=== PATIENT | female | born 1965 | race Two or more races ===

== ENCOUNTER 2020-01-25 16:17 | Emergency (ER) | payer MEDICARE, OTHER ==
[~2020-01-25] VITALS: Ht 154.9 cm; Wt 68.0 kg
--- NOTE | 2020-01-25 16:17 | NUR ---
PT [address] [address] C/O DRUG OVERDOSE PER EMS PT OD ON HEROIN. PT IS AAOX2, NOT IN RESPIRATORY DISTRESS, HOOKED TO COMMUNICATIONS PROFESSIONAL, KEPT RESTED AND COMFORTABLE. WILL CONTINUE TO MONITOR.
--- NOTE | 2020-01-25 18:26 | NUR ---
Patient given written and verbal discharge instructions. Patient verbalizes understanding of instructions. Patient is ambulatory with steady gait. Refuses offer of correction placement. Patient given list of available shelters in surrounding area.
[2020-01-25 18:27] VITALS: BP 120/71
== END 2020-01-25 18:29 | disposition home or self-care (01) ==
LOC: ER 16:27
DX: T40.1X1A Poisoning by heroin, accidental (unintentional), initial encounter (principal); Y92.89 Other specified places as the place of occurrence of the external cause

== ENCOUNTER 2020-04-23 09:28 | Emergency (ER) | payer MEDICARE, OTHER ==
[~2020-04-23] VITALS: Ht 149.9 cm; Wt 68.0 kg
[2020-04-23 09:30] VITALS: BP 128/74
--- NOTE | 2020-04-23 09:59 | NUR ---
UNABLE TO DO LEGAL DRAW, POLICE OFFICERS MADE AWARE. AWARE. PD left the facility.
== END 2020-04-23 10:00 ==
LOC: ER 09:30
DX: Z02.89 Encounter for other administrative examinations (principal)